=== PATIENT | female | born 1995 | race Caucasian/White ===

== ENCOUNTER 2019-02-15 19:24 | Emergency (ER) | payer OTHER ==
[~2019-02-15] VITALS: Ht 154.9 cm; Wt 63.5 kg
[2019-02-15 20:15] VITALS: BP 145/68
[2019-02-15] MEDS ORDERED: ONDA4TAB12 PO (20:29)
[2019-02-15] MEDS ORDERED: PNV1TABL78 PO (20:29)
--- NOTE | 2019-02-15 20:29 | PHYS DOC ---
Past Medical History Past Medical History: No Pertinent History Past Surgical History: No Surgical History Alcohol Use: Occasionally Drug Use: None Adult General Chief Complaint Chief Complaint: FLU SYMPTOM HPI HPI Patient is a 23 year old female who presents with nausea, sore throat, cough, runny nose has been ongoing for 4 days. Patient states been taking DayQuil at home. The patient also states been taking Benadryl. The patient rates her pain 3 out of 10 in severity and sharp. The patient states her last menstrual period was the first week in December. She's been on control. Review of Systems Review of Systems Constitutional: Denies fever or chills [] Eyes: Denies change in visual acuity, redness, or eye pain [] HENT: Report sore throat, runny nose, and congestion. Respiratory: Reports cough.] Cardiovascular: No additional information not addressed in HPI [] GI: Denies abdominal pain, nausea, vomiting, bloody stools or diarrhea [] : Denies dysuria or hematuria [] Musculoskeletal: Denies back pain or joint pain [] Integument: Denies rash or skin lesions [] Neurologic: Denies headache, focal weakness or sensory changes [] Endocrine: Denies polyuria or polydipsia [] Complete systems were reviewed and found to be within normal limits, except as documented in this note. Allergies Allergies Allergies Coded Allergies Type Severity Reaction Last Updated Verified amoxicillin Allergy Unknown 02/15/19 Yes Physical Exam Physical Exam Constitutional: Well developed, well nourished, no acute distress, non-toxic appearance. [] HENT: Normocephalic, atraumatic, bilateral external ears normal, oropharynx moist, no oral exudates, nose normal. [] Eyes: PERRLA, EOMI, conjunctiva normal, no discharge. [] Neck: Normal range of motion, no tenderness, supple, no stridor. [] Cardiovascular:Heart rate regular rhythm, no murmur [] Lungs & Thorax: Bilateral breath sounds clear to auscultation [] Abdomen: Bowel sounds normal, soft, no tenderness, no masses, no pulsatile mas ses. [] Skin: Warm, dry, no erythema, no rash. [] Neurologic: Alert and oriented X 3, normal motor function, normal sensory function, no focal deficits noted. [] Psychologic: Affect normal, judgement normal, mood normal. [] Current Patient Data Vital Signs Vital Signs Date Time Temp Pulse Resp B/P (MAP) Pulse Ox O2 Delivery O2 Flow Rate FiO2 02/15/19 20:15 98.2 93 16 145/68 (93) 98 Room Air 98.2 Lab Values Laboratory Tests Test 02/15/19 20:12 POC Urine HCG, Qualitative Hcg positive (Negative) EKG EKG [] Radiology/Procedures Radiology/Procedures [] Course & Med Decision Making Course & Med Decision Making Pertinent Labs and Imaging studies reviewed. (See chart for details) Will get test and give Zofran. test is +. Will prescribe Zofran for home. Dragon Disclaimer Dragon Disclaimer This electronic medical record was generated, in whole or in part, using a voice recognition dictation system. Departure Departure Impression: Primary Impression: Positive test Disposition: HOME, SELF-CARE Condition: STABLE Referrals: NO PCP (PCP) ZEE HUGHES Jr, MD Patient Instructions: ABCs of Additional Instructions: Thank you for visiting [facility]. We appreciate you trusting us with your care. If any additional problems come up don't hesitate to return to visit us. Please follow up with your primary care provider so they can plan additional care if needed and know about the problem that you had. If symptoms worsen come back to the Emergency Department. Any concerning symptoms that start such as chest pain, shortness of air, weakness or numbness on one side of the body, running high fevers or any other concerning symptoms return to the ER. Please fill your medications at any pharmacy and follow the prescription instructions. Scripts Ondansetron (ONDANSETRON ODT) 4 Mg Tab.rapdis 1 TAB PO PRN Q6-8HRS PRN for NAUSEA, #16 TAB Prov: HALEY HENRY APRN 02/15/19 Pnv No.122/Iron/Folic Acid ( Multi Tablet) 1 Each Tablet 1 TAB PO DAILY for 30 Days, #30 TAB 0 Refills Prov: HALEY HENRY APRN 02/15/19 HALEY HENRY APRN Feb 15, 2019 20:29
[2019-02-15] MEDS ORDERED: ONDANSETRON ODT 4 MG TAB.RAPDIS. PO ONE (20:30)
== END 2019-02-15 20:50 | disposition home or self-care (01) ==
LOC: ER 19:24
DX: O26.891 Other specified pregnancy related conditions, first trimester (principal); J02.9 Acute pharyngitis, unspecified; R09.89 Other specified symptoms and signs involving the circulatory and respiratory systems; R05 Cough; R11.0 Nausea; Z3A.00 Weeks of gestation of pregnancy not specified; Z88.1 Allergy status to other antibiotic agents
CPT/HCPCS: 81025; 99283; Q0162